=== PATIENT | female | born 1975 | race Two or more races ===

== ENCOUNTER → 2021-04-15 12:51 | Outpatient (BNVA) | payer OTHER, SELFPAY | PROVIDERS: PCP Family Medicine; Referring Provider Internal Medicine; Visit Provider Nurse Practitioner Family ==

== ENCOUNTER → 2022-04-10 08:07 | Outpatient (BNVA) | payer MEDICAID, SELFPAY | PROVIDERS: PCP Family Medicine; Visit Provider Nurse Practitioner Family | DX: G25.0 Essential tremor (principal); R53.83 Other fatigue | CPT/HCPCS: 99212 ==

== ENCOUNTER → 2023-04-13 09:48 | Outpatient (BNVA) | payer OTHER, MEDICAID, SELFPAY | PROVIDERS: PCP Internal Medicine; Visit Provider Nurse Practitioner Family ==

== ENCOUNTER 2023-04-13 09:57 | Outpatient (AMB) | payer OTHER, MEDICAID, SELFPAY ==
--- NOTE | 2023-04-13 10:08 | MHC.OFFVIS ---
Intake Vital Signs 04/13/23 10:14 Height 5 ft 7 in Weight 174 lb 4 oz BMI 27.3 BP 140/74 H Blood Pressure Location Lt brachial Position Sitting Pulse 84 Pulse Source Pulse Oximeter Pulse Oximetry (%) 98 Oxygen Delivery Method Room Air Intake Visit Reasons: Follow up - LVM Intake Note: Patient presents f/U BP a little high and feeling tired all the time Allergies nickel Allergy (Intermediate, Verified 04/13/23 10:13) swelling Sulfa (Sulfonamide Antibiotics) Allergy (Intermediate, Verified 04/13/23 10:13) swelling Medication List - Last Reconciled 04/13/23 by CALIXTO Easley lorazepam 0.5 mg PO BID PRN propranolol 10 mg orally daily; 30 days HPI HPI Comments History of Present Illness Details 47-yr-old female presents for f/u visit. Pt denies any significant interval medical changes. 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 Her BP has been increased- especially with increased stress. Also feels always tired. States her sleep is horrible . She states she can fall asleep, but has sleep maintenance difficulties- snoring, wakes up w/ heart racing, palpitations. She has had a 20lb weight gain since previous sleep study, which was normal prior to 2019. Using lorazepam or melatonin or THC gummies which sometimes help. Takes 2 coffees in the am. Her tremor can be increased when her BP and stress is elevated. Using Propranolol 10mg qam. She had PCP appt last week- who has ordered labs. PFSH Surgical History Hx of hand surgery Family History Father Diabetes Mother No problems noted. Social History Alcohol intake: current Patient Tobacco Use Status: Former Tobacco user Review of Systems Const All systems reviewed & are unremarkable except as noted in HPI and below Physical Exam Vital Signs: Last Vital Signs Pulse 84 04/13/23 10:14 BP 140/74 H 04/13/23 10:14 Pulse Ox 98 04/13/23 10:14 Oxygen Delivery Method Room Air 04/13/23 10:14 BMI result Body Mass Index 27.3 Const General: cooperative and no acute distress Orientation/consciousness: patient oriented x3 HEENT Head: Yes normocephalic Resp Effort & Inspection: normal respiratory effort and able to speak in complete sentences Neuro Other: BUE: Very mild postural tremor General: patient oriented x3, gait normal and CN's II-XI intact bilaterally Cognition (Neuro): normal cognition Motor exam (neuro): 5/5 motor strength present throughout Psych Appearance: grossly normal Mental Status: mental status grossly normal Speech and movement: Clear speech present Affect: normal affect Attitude: cooperative Thought process: Normal thought process present Thought content: Normal thought content present Insight: Good insight present (Psych) Judgement: Good judgement present (Psych) Assessment & Plan Assessment & Plan (1) Fatigue: Code(s): R53.83 - Other fatigue (2) Snoring: Code(s): R06.83 - Snoring (3) Sleep difficulties: Code(s): G47.9 - Sleep disorder, unspecified (4) HTN (hypertension): Code(s): I10 - Essential (primary) hypertension (5) Tachycardia: Code(s): R00.0 - Tachycardia, unspecified (6) Essential tremor: Code(s): G25.0 - Essential tremor Plan Patient is advised to undergo HST to assess for sleep apnea. Continue Propranolol 10mg qd- for tremor. Future consideration: Trying Propranolol ER 60mg qhs. Orders: Orders RT home sleep study 04/13/23 R53.83 - Other fatigue, R06.83 - Snoring, G47.9 - Sleep disorder, unspecified, I10 - Essential (primary) hypertension, R00.0 - Tachycardia, unspecified Coding Level of Care Code Est Pt Level 4 (72426) Diagnoses Fatigue R53.83 Snoring R06.83 Sleep difficulties G47.9 HTN (hypertension) I10 Tachycardia R00.0 Essential tremor G25.0
[2023-04-13 10:14] VITALS: BP 140/74; PULSE 84; O2SAT 98; BMI 27.3
== END 2023-04-13 11:06 | disposition home or self-care (01) ==
PROVIDERS: PCP Internal Medicine; Visit Provider Nurse Practitioner Family
DX: R53.83 Other fatigue (principal); R06.83 Snoring; G47.9 Sleep disorder, unspecified; I10 Essential (primary) hypertension; R00.0 Tachycardia, unspecified; G25.0 Essential tremor
CPT/HCPCS: 99214

== ENCOUNTER → 2023-06-10 11:01 | Outpatient (REF) | payer OTHER, MEDICAID, SELFPAY | LOC: HO.SL 11:01 | PROVIDERS: PCP Internal Medicine; Visit Provider Nurse Practitioner Family | DX: G47.9 Sleep disorder, unspecified (principal); R06.83 Snoring; R53.83 Other fatigue; I10 Essential (primary) hypertension; R00.0 Tachycardia, unspecified | CPT/HCPCS: 95806 ==

== ENCOUNTER → 2023-06-10 11:16 | Outpatient (BNV) | payer OTHER, MEDICAID, SELFPAY | PROVIDERS: PCP Internal Medicine; Visit Provider Psychiatry & Neurology Neurology | DX: R06.83 Snoring (principal) | CPT/HCPCS: 95806 ==

== ENCOUNTER 2023-12-02 10:23 | Outpatient (AMB) | payer OTHER, SELFPAY ==
[2023-12-02 10:38] VITALS: BP 132/82; BMI 27.2
--- NOTE | 2023-12-02 10:38 | MHC.OFFVIS ---
Vital Signs 12/02/23 10:38 Height 5 ft 7 in Weight 174 lb BMI 27.2 BP 132/82 Blood Pressure Location Rt brachial Position Sitting Intake Visit Reasons: 3-4 mo Intake Note: Patient presents for tremors follow up. patient no longer phlebotomy wants to take propranolol. Allergies nickel Allergy (Intermediate, Verified 12/02/23 10:48) swelling Sulfa (Sulfonamide Antibiotics) Allergy (Intermediate, Verified 12/02/23 10:48) swelling Medication List - Last Reconciled 12/02/23 by CALIXTO Easley albuterol sulfate 90 mcg/actuation (Ventolin HFA) 1 - 2 puffs inhalation Q4-6H PRN etonogestrel-ethinyl estradiol 0.12-0.015 mg/24 hr vag rings vaginal lorazepam 0.5 mg PO BID PRN propranolol 10 mg orally daily; 30 days HPI Comments Details: 48-yr-old female presents for f/u visit. Pt denies any significant interval medical changes. 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 Her HST and in-lab PSG results did not show sleep apnea, but did show significant snoring. PFSH Surgical History Hx of hand surgery Family History Father Diabetes Mother No problems noted. Social History Alcohol intake: current Patient Tobacco Use Status: Former Tobacco user Review of Systems Const All systems reviewed & are unremarkable except as noted in HPI and below Physical Exam Vital Signs: Last Vital Signs BP 132/82 12/02/23 10:38 BMI result Body Mass Index 27.2 Const General: cooperative and no acute distress Resp Effort & Inspection: normal respiratory effort and able to speak in complete sentences Neuro Other: General: A&O x's 3 Expression: Intact Voice: Intact Tremor: No visible tremor today Gait: Good stride, steady gait Psych: Pleasant affect Assessment & Plan Assessment & Plan (1) Snoring: Code(s): R06.83 - Snoring Category: Medical (2) Essential tremor: Code(s): G25.0 - Essential tremor Category: Medical Plan For ET: Pt may slowly wean off Propranolol 10mg qd. May use Propranolol 10mg bid prn thereafter. For snoring: HST and in-lab PSG- no evidence of sleep apnea. Pt will try OTC snoring aides. Info shared on sleep/snoring education- suchg as sleep unplugged podcast. Future considerations: ENT consult. Scribe Plan - Not visible on output: Discussed importance of regular physical activity for management of PD s/s, such as walking, cycling, boxing. Discussed benefits of dopaminergic therapies, such as reduced tremor and improved motor symptoms. Discussed potential adverse effects of dopaminergic therapies, including but not limited to nause/GI upset, orthostatic lightheadedness, dyskineisas, sleepiness, hallucinations. Pt is advised to establish care with a collector of port due to slight increase risk of melanoma seen in patient's with Parkinson's disease. Coding Level of Care Code Est Pt Level 4 (83139) Diagnoses Snoring R06.83 Essential tremor G25.0
== END 2023-12-02 11:27 | disposition home or self-care (01) ==
PROVIDERS: PCP Internal Medicine; Visit Provider Nurse Practitioner Family
DX: R06.83 Snoring (principal); G25.0 Essential tremor
CPT/HCPCS: 99214

== ENCOUNTER → 2023-12-02 10:23 | Outpatient (BNVA) | payer OTHER, SELFPAY | PROVIDERS: PCP Internal Medicine; Visit Provider Nurse Practitioner Family ==

== ENCOUNTER 2024-05-10 12:37 | Emergency (ER) | payer OTHER, SELFPAY ==
[2024-05-10 12:50] VITALS: BP 179/110; PULSE 89; RESP 16; TEMP 35.7; O2SAT 99; BMI 30.9
--- NOTE | 2024-05-10 12:50 | ECG_ITS ---
Test Reason : PAIN Blood Pressure : */* mmHG Vent. Rate : 82 BPM Atrial Rate : 82 BPM P-R Int : 142 ms QRS Dur : 82 ms QT Int : 366 ms P-R-T Axes : 36 8 -13 degrees QTcB Int : 427 ms Normal sinus rhythm Possible Anterior infarct , age undetermined T wave abnormality, consider inferior ischemia Abnormal ECG No previous ECGs available Referred By: Hernan Suresh Electronically Signed By: George Villafuerte
--- NOTE | 2024-05-10 12:50 | ED_ITS ---
HPI - General Adult General Chief complaint: General Medical Stated complaint: High Blood Pressure, Headaches Time Seen by Provider: 05/10/24 17:20 Source: patient Limitations: no limitations History of Present Illness ED Provider: Terese Marshall PA-C HPI narrative: 49-year-old female with a history of obesity, hypertension, sleep difficulties with snoring, presents with hypertension. Patient states she was just started on lisinopril a day ago, she is noting that her blood pressure is still elevated. In addition, patient states she has been having generalized headaches. Patient states she had a brief episode of chest discomfort that lasted 5 minutes then resolved. Denies shortness of breath diaphoresis, nausea, vomiting. Denies visual disturbance. Related Data Home Medications ?Medication ?Instructions ?Recorded ?Confirmed lorazepam 0.5 mg tablet 0.5 mg PO BID PRN 04/15/21 04/13/23 albuterol sulfate 90 mcg/actuation 1 - 2 puff inhalation Q4-6H PRN 12/02/23 12/02/23 aerosol inhaler (Ventolin HFA) etonogestrel 0.12 mg-ethinyl vag ring vaginal 12/02/23 12/02/23 estradiol 0.015 mg/24 hr vaginal ring Previous Rx's ?Medication ?Instructions ?Recorded propranolol 10 mg tablet 10 mg PO .COMPLEX 30 days #90 tabs 06/16/23 Allergies Allergy/AdvReac Type Severity Reaction Status Date / Time nickel Allergy Intermediate swelling Verified 05/10/24 12:53 Sulfa (Sulfonamide Allergy Intermediate swelling Verified 05/10/24 12:53 Antibiotics) Review of Systems 2 Review of Systems: Yes all other systems are reviewed and are negative Constitutional: Constitutional: Denies fatigue, Denies fever(s) and Reports headache(s) Eyes: Eyes: Denies change in vision ENT: Denies dizziness and Reports headache(s) Cardiovascular: Cardiovascular: Reports chest pain and Denies dyspnea Respiratory: Respiratory: Denies cough and Denies dyspnea Gastrointestinal: Gastrointestinal: Denies abdominal pain, Denies nausea and Denies vomiting Neurologic: Denies dizziness and Reports headache(s) Endocrine: Endocrine: Denies fatigue [facility] Past Medical History Attestation statement: The following information was validated with the patient. Surgical History Hx of hand surgery Family History Family History Father Diabetes Mother No problems noted. Social History Social History Alcohol intake: current Patient Tobacco Use Status: Former Tobacco user Advance Directives: No Advance Directives Information Provided: Yes Physical Exam ED Vital Signs: Vital Signs - 24 hr 05/10/24 12:50 05/10/24 17:18 05/10/24 18:14 Temperature 96.3 F L 97.9 F Pulse Rate 89 80 81 Respiratory Rate 16 16 16 Blood Pressure 179/110 H 177/112 H 174/109 H Pulse Oximetry 99 100 99 Oxygen Delivery Method Room Air Room Air Room Air BMI result Body Mass Index 30.9 Const Other: Alert well-appearing Orientation/consciousness: patient oriented x3 Resp Effort & Inspection: normal respiratory effort Cardio Other: Normal peripheral perfusion Skin Other: Warm dry no rash Neuro General: patient oriented x3, gait normal, no focal motor deficits and CN's II- XI intact bilaterally Psych Other: Cooperative Course Course Course Narrative: RME, this is a rapid medical exam performed by Douglas Suresh please refer to primary provider for complete H&P- 49 year old female presents for evaluation of high blood pressure. She was started on Lisinopril by her PCP yesterday. She reports continues headaches and high blood pressure today. She had one episode of chest pain this morning that resolves after 5 mintues Medical Decision Making Medical Decision Making MDM Narrative: 49-year-old female with a history of obesity, hypertension, sleep difficulties with snoring, presents with hypertension. Patient states she was just started on lisinopril a day ago, she is noting that her blood pressure is still elevated. In addition, patient states she has been having generalized headaches. Patient states she had a brief episode of chest discomfort that lasted 5 minutes then resolved. Denies shortness of breath diaphoresis, nausea, vomiting. Denies visual disturbance. Problem: Hypertension, obesity, sleeping difficulty History: Per patient I have considered the following differential diagnoses: Hypertensive urgency, hypertensive emergency, end-organ damage Plan: Screening labs including a cardiac enzymes chest x-ray and EKG were obtained from triage, all to assess for evidence of end-organ damage. To note the patient was not been excessively hypertensive here in the emergency department. I explained to the patient that it may take time for her body to acclimate to the to medication, and that she will not instantaneously drop her blood pressure. In regard to the headache, I explained that pain can drive the elevation of blood pressure. I also explained to the patient that given she struggles with sleep difficulty and snores, she may have undiagnosed sleep apnea, which contributes to poorly controlled blood pressure. We will be sending the patient with the home care instructions and have advised for her to follow up with her primary care provider. I have independently reviewed the following tests: Labs: No leukocytosis, not anemic, no electrolyte abnormality, kidney function normal, troponin negative EKG: Normal sinus rhythm, rate 82, no active ischemic changes no ectopy, QTC 427 Lab Data 05/10/24 13:11 05/10/24 13:11 Labs: Lab Results 05/10/24 05/10/24 Range/Units 13:11 13:16 WBC 4.8 (4.8-10.8) X10*3/uL RBC 4.83 (4.20-5.50) X10*6/uL Hgb 14.2 (12.0-16.0) g/dl Hct 41.3 (37.0-47.0) % MCV 85.5 (80.0-98.0) fL MCH 29.4 (27.0-33.0) pg MCHC 34.4 (31.0-35.0) g/dl RDW 12.3 (11.0-16.0) % Plt Count 165 (160-400) X10*3/uL MPV 11.2 (9.4-12.3) fL Immature Gran % (Auto) 0.2 (0.0-0.4) % Neut % (Auto) 61.8 (45-73) % Lymph % (Auto) 24.8 (20-40) % [place] % (Auto) 7.9 (2-11) % Eos % (Auto) 4.0 (0-4) % Baso % (Auto) 1.3 (0-2) % Lymph # (Auto) 1.2 (1.2-4.9) X10*3/uL [place] # (Auto) 0.4 (0.1-1.2) X10*3/uL Eos # (Auto) 0.2 (0.0-0.4) X10*3/uL Baso # (Auto) 0.1 (0.0-0.2) X10*3/uL Abs Immat Gran (auto) 0.01 (0.00-0.03) X10*3/uL Absolute Neuts (auto) 3.0 (2.0-8.3) x10*3/uL Absolute Nucleated RBC 0.000 (0.0-0.012) X10*3/uL Nucleated RBC % (auto) 0.0 (0.0-0.2) /100WBC PT 12.9 H (10.9-12.4) SEC INR 1.1 (0.9-1.1) Sodium 141 (135-145) mmol/L Potassium 3.8 (3.3-5.1) mmol/L Chloride 106 (96-108) mmol/L Carbon Dioxide 28 (22-29) mmol/L Anion Gap 11 L (12-20) BUN 14 (9-16) mg/dL Creatinine 0.76 (0.5-1.4) mg/dL Estim Creat Clear Calc 105.0 Estimated GFR > 60 Random Glucose 105 (60-115) mg/dL Calcium 9.3 (8.4-10.2) mg/dL Magnesium 1.9 (1.6-2.6) mg/dL Total Bilirubin 0.6 (0.0-1.0) mg/dL AST 34 H (5-31) U/L ALT 50 H (0-31) U/L Alkaline Phosphatase 54 (39-117) U/L Troponin I High Sens < 2.7 (<3.5-17.0) ng/L Total Protein 7.3 (6.5-8.0) g/dL Albumin 4.1 (3.5-5.0) g/dL Lipase 27 (8-78) U/L Urine Color Yellow Urine Appearance Cloudy Urine pH 8.5 (5.0-9.0) Ur Specific [place] 1.020 (1.005-1.025) Urine Protein Negative (Neg-Trace) mg/dL Urine Glucose (UA) Negative (Negative) mg/dL Urine Ketones Negative (Negative) mg/dL Urine Blood Negative (Negative) Urine Nitrite Negative (Negative) Ur Leukocyte Esterase Small (1+) H (Negative) Urine RBC 0-2 (0-2) /HPF Urine WBC 0-5 (0-5) /HPF Ur Squamous Epith Cells 11-20 (0-2) /HPF Other Crystals Present Urine Bacteria 1+ (None Seen) Hyaline Casts 0-2 (0-2) /LPF Influenza Type A (PCR) NEGATIVE (Negative) Influenza Type B (PCR) NEGATIVE (Negative) RSV RNA Qual (PCR) NEGATIVE (Negative) SARS-CoV-2 RNA (RT-PCR) NEGATIVE (Negative) Discharge Plan Discharge Clinical Impression: HTN (hypertension) Patient Disposition: Home, Self-Care Instructions: Hypertension (ED) Additional Instructions: All of your screening labs including a cardiac enzymes were normal. There were no abnormalities with your urinalysis. There were no concerning changes on your EKG. It is going to take time for your body to acclimate to the new blood pressure medication. I would contact your primary care provider to determine at what point you would follow up to discuss the need for a potential additional medication to regulate your blood pressure. I would also inquire about the need for a cardiology consult, and an echocardiogram, given your diastolic pressure is elevated. Prescriptions: No Action propranolol 10 mg tablet 10 mg PO .COMPLEX 30 Days Qty: 90 1RF Rx Instructions: 10 mg orally daily; lorazepam 0.5 mg tablet 0.5 mg PO BID PRN etonogestrel-ethinyl estradiol 0.12-0.015 mg/24 hr ring vaginal albuterol sulfate [Ventolin HFA] 90 mcg/actuation HFA aerosol inhaler 1 - 2 puff inhalation Q4-6H PRN Stand Alone Forms: Work/School Release Interventions: ED Discharge Assessment Last Done: 05/10/24 18:34 Discharge Date/Time: 05/10/24 18:34 Print Language: [place]er
[2024-05-10 13:16] LABS: MANUAL DIFF FLAG NO
[2024-05-10 13:17] LABS: Basophils Absolute Auto 0.1 X10*3/uL (0.0-0.2); Basophils Percent Auto 1.3 % (0-2); Eosinophils Absolute Auto 0.2 X10*3/uL (0.0-0.4); Hematocrit 41.3 % (37.0-47.0); Hemoglobin 14.2 g/dl (12.0-16.0); Imm Gran Abs Auto 0.01 X10*3/uL (0.00-0.03); Imm Gran Pct Auto 0.2 % (0.0-0.4); Lymphocytes Absolute Auto 1.2 X10*3/uL (1.2-4.9); Lymphocytes Percent Auto 24.8 % (20-40); Mean Corpuscular HGB Conc 34.4 g/dl (31.0-35.0); Mean Corpuscular Hemoglobin 29.4 pg (27.0-33.0); Mean Corpuscular Volume 85.5 fL (80.0-98.0); Mean Platelet Volume 11.2 fL (9.4-12.3); Monocytes Absolute Auto 0.4 X10*3/uL (0.1-1.2); Monocytes Percent Auto 7.9 % (2-11); Neutrophils Percent Auto 61.8 % (45-73); Platelet Count 165 X10*3/uL (160-400); Red Blood Count 4.83 X10*6/uL (4.20-5.50); Red Cell Distribution Width 12.3 % (11.0-16.0); White Blood Count 4.8 X10*3/uL (4.8-10.8)
[2024-05-10 13:23] LABS: Appearance Urine Cloudy; Color Urine Yellow; Glucose Urine UA Negative (Negative); Leukocyte Esterase Urine Small (1+) (Negative); Nitrite Urine Negative (Negative); PH 8.5 (5.0-9.0); UMIC TRIGGER UACC YES; Urine Blood Negative (Negative); Urine Ketones Negative (Negative); Urine Protein Negative (Neg-Trace)
[2024-05-10 13:25] LABS: INTERNATIONAL NORM RATIO 1.1 (0.9-1.1); Prothrombin Time 12.9 SEC (10.9-12.4)
[2024-05-10 13:35] LABS: Bacteria Urine 1+ (None Seen); Hyaline Casts Urine 0-2 /LPF (0-2); Other Crystals Urine Present; RBC Urine 0-2 /HPF (0-2); UACC Culture Trigger YES; WBC Urine 0-5 /HPF (0-5)
[2024-05-10 13:42] LABS: Alanine Aminotransferase 50 U/L (0-31); Albumin Level 4.1 g/dL (3.5-5.0); Alkaline Phosphatase 54 U/L (39-117); Anion Gap 11 (12-20); Aspartate Amino Transferase 34 U/L (5-31); Bilirubin Total 0.6 mg/dL (0.0-1.0); Blood Urea Nitrogen 14 mg/dL (9-16); Calcium 9.3 mg/dL (8.4-10.2); Carbon Dioxide 28 mmol/L (22-29); Chloride 106 mmol/L (96-108); Estimated Glomerular Filt Rate > 60; Glucose Random 105 mg/dL (60-115); Lipase 27 U/L (8-78); Magnesium 1.9 mg/dL (1.6-2.6); Potassium 3.8 mmol/L (3.3-5.1); Sodium 141 mmol/L (135-145); Total Protein 7.3 g/dL (6.5-8.0)
[2024-05-10 13:47] LABS: Troponin-I High Sensitivity < 2.7 ng/L (<3.5-17.0)
[2024-05-10 13:59] LABS: Influenza A PCR NEGATIVE (Negative); Influenza B PCR NEGATIVE (Negative); Resp Syncy Virus RNA Qual PCR NEGATIVE (Negative); SARS COV2 PCR INHOUSE NEGATIVE (Negative)
[2024-05-10 17:18] VITALS: BP 177/112; PULSE 80; RESP 16; O2SAT 100
[2024-05-10 18:14] VITALS: BP 174/109; PULSE 81; RESP 16; TEMP 36.6; O2SAT 99
[2024-05-10 18:34] VITALS: BP 174/109; PULSE 81; RESP 16; TEMP 36.6; O2SAT 99
--- OUTSIDE RECORDS SUMMARY | 2024-05-10 20:00 | XMS_ITS | Clinical Summary ---
Author Organization [employer] Address [address] [place] [address] Care Team Providers Care Family Manager Name Role Phone Unavailable Primary Care Provider Unavailabl e Social History Tobacco Use Types Packs/Day Years Used Date Smoking Tobacco: Never Assessed Comments Unknown Sex and Gender Information Value Date Recorded Sex Assigned at Not on file Legal Sex Female 10:26 AM EDT Gender Identity Not on file Sexual Orientation Not on file Plan of Treatment Health Maintenance Due Date Last Done Comments CT Colonography 1977 Colonoscopy 1977 Colorectal Cancer Screening 1977 Depression Screening 1977 FIT DNA/Cologuard 1977 FIT 1977 FOBT 1977 HIV Screening 1977 SDOH Screening 1977 Sigmoidoscopy 1977 Alcohol/Substance Use Screening 1989 Tobacco Screening 1989 Family Planning (PISQ) 1992 Hepatitis C Screening 1995 DTaP/Tdap/Td Vaccines (1 - Tdap) 1996 Hepatitis B Vaccines (1 of 3 - 19+ 3-dose series) 1996 Pap Smear 1998 Cervical Cancer Screening 2007 HPV/Cotest 2007 Mammogram 2017 COVID-19 Vaccine ( - 2023-2 5 season) 2023 Influenza Vaccine (#1) 2023 Zoster Vaccines (1 of 2) 2027 RSV Patients and Pa tients Aged 60 years or older (1 - 1-dose 75+ series) 2052 HIB Vaccines Aged Out No longer eligi ble based on patient's age to complete this topic HPV Vaccines Aged Out No longer eligi ble based on patient's age to complete this topic Hepatitis A Vaccines Aged Out No long er eligible based on patient's age to complete this topic IPV Vaccines Aged Out No longer eligi ble based on patient's age to complete this topic Meningococcal Vaccine Aged Out No annette pat eligible based on patient's age to complete this topic Pneumococcal Vaccine: Pediat rics (0 to 5 Years) and At-Risk Patients (6 to 49) Years) Aged Out No longer eligible b ased on patient's age to complete this topic RSV under 20 months Aged Out No longe r eligible based on patient's age to complete this topic Rotavirus Vaccines Aged Out No longer eligible based on patient's age to complete this topic Insurance [employer] C[employer]
--- OUTSIDE RECORDS SUMMARY | 2024-05-10 20:00 | XMS_ITS | Encounter Summary ---
Author Organization [employer] Address [address] [place] [address] Care Team Providers Care Plasma Table Operator Name Role Phone Unavailable Primary Care Provider Unavailabl e Reason for Visit * Reason Onset Date Comments New Patient 11/24/2022 Encounter Details Date Type Department Care Team (Late st Contact Info) Description 11/24/2022 Telephone [facility] [address] [place], [place] [phone] Frantz Kang MD [address] [place], [place] [phone] New Patient Social History Tobacco Use Types Packs/Day Years Used Date Smoking Tobacco: Never Assessed Comments Unknown Sex and Gender Information Value Date Recorded Sex Assigned at Not on file Legal Sex Female 10:26 AM EDT Gender Identity Not on file Sexual Orientation Not on file documented as of this encounter Miscellaneous Notes * Telephone Encounter - Lloyd Colin - 11/24/2022 2:33 PM EDT New Patients Par Lloyd Henriquez called to schedule New patient appt, pt did not answer left voicemail to give a call at [phone]. documented in this encounter Plan of Treatment Not on file documented as of this encounter Visit Diagnoses Not on filedocumented in this encounter
--- OUTSIDE RECORDS SUMMARY | 2024-05-10 20:00 | XMS_ITS | Continuity of Care Document ---
Author Organization [employer] Address [address] [place] [address] Phone Care Team Providers Care Small Arms Repairer Name Role Phone Unavailable Unavailable Unavailable Procedures Procedure Date OFFICE/OUTPATIENT VISIT, [facility] Resin Based Composite - Two Surfaces, Po sterior 2 SURFACE PERMANENT/AMAL 2 SURFACE PERMANENT/AMAL 1 SURFACE PERMANENT/AMAL SC[employer]ING [employer] ROOT PLANNING/ SCALING [employer] ROOT PLANNING/ SCALING [employer] ROOT PLANNING/ SCALING [employer] ROOT PLANNING/ Advance Directives Directive Yes / No Effective Date File Name No Information Encounters Encounter Description Practice Location Reason(s) For Visit Diagnoses Date Provider Providers Copied on Encounter OFFICE/OUTPAT IENT VISIT, [facility], [address] [place], [address], [place] tel:[phone] [facility] No Information 1 No Information [facility], [address] [place], [address], [place] tel:[phone] [facility] No Information 1 No Information [facility], [address] [place], [address], [place] tel:[phone] [facility] No Information Oct-0 1 No Information [facility], [address] [place], [address], [place] tel:[phone] [facility] No Information 1 No Information [facility], [address] [place] [address], [address], tel:[phone] [facility] No Information 1 No Information [facility], [address] [place] [address], [address], tel:[phone] [facility] No Information 1 No Information [facility], [address] [place] [address], [address], [place] tel:[phone] [facility] No Information 1 No Information [facility], [address] [place] [address], [address], tel:[phone] [facility] No Information 1 No Information [facility], [address] [place] [address], [address], tel:[phone] [facility] No Information 1 No Information Family History Family Member Type Diagnosis Age At Onset No Information Payers Payer name Insurance type Covered libertarian ID Authoriza tion(s) No Information Social History Type Description Quantity Date Captured Comments Sex Female Smoking Status No Information Chief Complaint And Reason For Visit No Information Reason For Referral Reason For Referral No Information History Of Present Illness Encounter Date Complaint History Of Prese nt Illness No Information Functional Status Date Functional Assessmen t No Information Instructions Date Instruction Additional Infor mation No Information Assessments Type Assessment Date No Information Patient Care Teams Name Effective Dates (start - stop) Status Members No Information
== END 2024-05-10 18:34 | disposition home or self-care (01) ==
PROVIDERS: Physician Assistant; Emergency Provider Internal Medicine; PCP Internal Medicine
DX: I10 Essential (primary) hypertension (principal); R07.9 Chest pain, unspecified; R51.9 Headache, unspecified; Z87.891 Personal history of nicotine dependence; Z03.818 Encounter for observation for suspected exposure to other biological agents ruled out
CPT/HCPCS: 0241U; 36415; 80053; 81001; 83690; 83735; 84484; 85025; 85610; 87086; 87147; 93005; 99283; 99284

== ENCOUNTER → 2024-05-10 12:50 | Outpatient (BNV) | payer OTHER, SELFPAY | PROVIDERS: Emergency Provider Internal Medicine; PCP Internal Medicine; Visit Provider Internal Medicine Cardiovascular Disease | DX: R94.31 Abnormal electrocardiogram [ECG] [EKG] (principal); R07.9 Chest pain, unspecified | CPT/HCPCS: 93010 ==